=== PATIENT | female | born 1945 | race Caucasian/White ===

== ENCOUNTER 2020-01-31 07:53 | Emergency (ER) | payer MEDICARE, MEDICAID ==
--- NOTE | 2020-01-31 18:33 | CR ---
CLINICAL DATA: Pain. AP AND FROG-LEG PELVIS: Minimal osteoarthritic change of the hip joints. Mild degenerative changes involving the SI joints and symphysis pubis. No acute fracture or dislocation. No lytic or blastic bone lesions. Job: [id number] [facility]
--- NOTE | 2020-01-31 18:38 | CR ---
CLINICAL DATA: Pain. LUMBAR SPINE, 31 JANUARY 2020: No priors. There is diffuse osteopenia. The vertebral bodies are of average height. No acute fracture or dislocation. No lytic or blastic bone lesions. There is mild right convexity scoliosis of the upper lumbar spine. There are disk margin spurs throughout the lower thoracic and lumbar spine with disk space narrowing diffusely. There is mild anterolisthesis of L3 on L4 and of L4 on L5. There is facet joint hypertrophy throughout the lumbar spine. There is a 12 mm rim-calcified structure anterior to the L1 vertebra on the lateral view, which is probably vascular calcification. No other significant findings. [facility] [id number] [facility]
== END 2020-01-31 10:25 | disposition home or self-care (01) ==
LOC: LB.ED 07:53 → SUPCPDRO 07:53 → EDBD 07:53 → LB.ED 10:25
DX: M54.41 Lumbago with sciatica, right side (principal); I16.0 Hypertensive urgency
CPT/HCPCS: 72100; 72170; 99282; 99283

== ENCOUNTER 2021-08-15 09:30 | Inpatient (IN) | payer MEDICARE, MEDICAID ==
[2021-08-15 11:04] LABS: ESTIMATED GFR > 60 MLS/MIN (>60)
[2021-08-15] MEDS ORDERED: LORazepam 2 MG/ML SDV IM ONE (11:32)
[2021-08-15] MEDS ORDERED: Pantoprazole 40 MG Vial IVPUSH ONE (11:36)
[2021-08-15] MEDS ORDERED: LORazepam 2 MG/ML SDV ONE (11:37)
[2021-08-15] MEDS ORDERED: Pantoprazole 40 MG Vial ONE (12:20)
[2021-08-15] MEDS: Pantoprazole 80 MG in Sodium Chloride 0.9% 100 ML IV SCH (12:28)
[2021-08-15] MEDS ORDERED: Acetaminophen 325 MG Tab PO PRN (12:52)
[2021-08-15] MEDS: Sucralfate 1 GM Tab PO SCH (21:59)
[2021-08-16] MEDS: Pantoprazole 80 MG in Sodium Chloride 0.9% 100 ML IV SCH (01:40)
[2021-08-16] MEDS ORDERED: Sucralfate 1 GM Tab ONE (10:22)
[2021-08-16] MEDS: LORazepam 2 MG/ML SDV IVPUSH PRN ×2 (10:28→16:39)
[2021-08-16] MEDS: Sucralfate 1 GM Tab PO SCH ×3 (10:29→20:31)
[2021-08-17] MEDS: LORazepam 2 MG/ML SDV IVPUSH PRN ×3 (00:29→15:45)
[2021-08-17] MEDS: Sucralfate 1 GM Tab PO SCH ×3 (08:22→19:52)
[2021-08-17] MEDS: Pantoprazole 80 MG in Sodium Chloride 0.9% 100 ML IV SCH (08:38)
[2021-08-18] MEDS: LORazepam 2 MG/ML SDV IVPUSH PRN ×3 (00:32→16:50)
[2021-08-18] MEDS ORDERED: Pantoprazole 40 MG Vial IVPUSH ONE (06:27)
[2021-08-18] MEDS ORDERED: fentaNYL 100 MCG/2 ML SDV IVPUSH ONE (06:38)
[2021-08-18] MEDS ORDERED: LORazepam 2 MG/ML SDV ONE (06:45)
[2021-08-18] MEDS ORDERED: fentaNYL 100 MCG/2 ML SDV ONE (06:46)
[2021-08-18] MEDS: Pantoprazole 80 MG in Sodium Chloride 0.9% 100 ML IV SCH (08:45)
[2021-08-18] MEDS ORDERED: Octreotide 100 MCG/ML SDV IVPUSH SCH ×2 (09:15)
[2021-08-18] MEDS: Sucralfate 1 GM Tab PO SCH ×3 (10:34→19:23)
[2021-08-18] MEDS: hydrOXYzine HCl 25 MG Tab PO PRN (12:25)
[2021-08-18] MEDS ORDERED: Pantoprazole 40 MG Vial ONE (22:31)
[2021-08-19] MEDS: hydrOXYzine HCl 25 MG Tab PO PRN ×2 (07:10→19:59)
[2021-08-19] MEDS: Sucralfate 1 GM Tab PO SCH ×3 (07:10→19:59)
[2021-08-19] MEDS ORDERED: SODIUM CHLORIDE 0.9% IV SCH ×2 (08:00→10:30)
[2021-08-19] MEDS ORDERED: OCTREOTIDE IV SCH ×2 (08:00→10:30)
[2021-08-19] MEDS: LORazepam 2 MG/ML SDV IVPUSH PRN ×2 (11:00→17:06)
[2021-08-19] MEDS: Pantoprazole 80 MG in Sodium Chloride 0.9% 100 ML IV SCH ×2 (11:25→21:31)
[2021-08-20] MEDS: hydrOXYzine HCl 25 MG Tab PO PRN (06:29)
[2021-08-20] MEDS: Sucralfate 1 GM Tab PO SCH (08:07)
[2021-08-20] MEDS: Pantoprazole 80 MG in Sodium Chloride 0.9% 100 ML IV SCH (08:08)
[2021-08-20] MEDS ORDERED: Ondansetron 4 MG/2 ML SDV IVPUSH PRN (11:29)
[2021-08-21] MEDS ORDERED: Omeprazole 20 MG Cap.CR PO SCH (08:00)
== END 2021-08-20 12:09 | disposition swing bed (61) | DRG 378 ==
LOC: LB.ED 09:30 → LB.MS 15:00
PROVIDERS: ADMIT Physician Assistant; ATTEND Nurse Practitioner Family
PROC: 30233N1 Transfusion of Nonautologous Red Blood Cells into Peripheral Vein, Percutaneous Approach (ICD-10-PCS; principal; 2021-08-15)
PROC: 30233N1 Transfusion of Nonautologous Red Blood Cells into Peripheral Vein, Percutaneous Approach (ICD-10-PCS; 2021-08-15)
DX: K92.2 Gastrointestinal hemorrhage, unspecified (principal); D62 Acute posthemorrhagic anemia; G89.29 Other chronic pain; M54.9 Dorsalgia, unspecified; F41.9 Anxiety disorder, unspecified; R13.10 Dysphagia, unspecified; T39.015A Adverse effect of aspirin, initial encounter; Z51.5 Encounter for palliative care
CPT/HCPCS: 36415; 36430; 71250; 74176; 80053; 83605; 83690; 85025; 85379; 86850; 86900; 86901; 86920; 86922; 96372; 96374; 99285; A0425; A0429; C9113 ×2; J2060; J3490; P9016; 92526-GN; 92610-GN; 97161-GP; A9270-GY; J2354-JA

== ENCOUNTER 2021-08-20 11:48 | Inpatient (IN) | payer MEDICARE, MEDICAID ==
[2021-08-20] MEDS ORDERED: Acetaminophen 325 MG Tab PO PRN (12:09)
[2021-08-20] MEDS ORDERED: Ondansetron 4 MG/2 ML SDV IVPUSH PRN (12:09)
[2021-08-20] MEDS ORDERED: hydrOXYzine HCl 25 MG Tab PO PRN (12:09)
[2021-08-20] MEDS: LORazepam 2 MG/ML SDV IVPUSH PRN (14:27)
[2021-08-20] MEDS: Sucralfate 1 GM Tab PO SCH ×2 (14:34→20:54)
[2021-08-21] MEDS: Sucralfate 1 GM Tab PO SCH ×3 (07:03→20:49)
[2021-08-21] MEDS: Omeprazole 20 MG Cap.CR PO SCH (07:03)
[2021-08-21] MEDS ORDERED: Pantoprazole 80 MG in Sodium Chloride 0.9% 100 ML IV SCH (11:00)
[2021-08-21] MEDS ORDERED: Sodium Chloride 0.9% 1,000 ML IV SCH (11:10)
[2021-08-21] MEDS: OCTREOTIDE IV SCH (11:13)
[2021-08-21] MEDS: SODIUM CHLORIDE 0.9% IV SCH (11:13)
[2021-08-21] MEDS: LORazepam 2 MG/ML SDV IVPUSH PRN (12:16)
[2021-08-21] MEDS ORDERED: LORazepam 2 MG/ML SDV IVPUSH ONE (16:09)
[2021-08-21] MEDS: Sodium Chloride 0.9% 1,000 ML IV SCH (17:30)
[2021-08-21] MEDS: Pantoprazole 80 MG in Sodium Chloride 0.9% 100 ML IV SCH (17:37)
[2021-08-22] MEDS: Pantoprazole 80 MG in Sodium Chloride 0.9% 100 ML IV SCH (04:15)
[2021-08-22] MEDS: Sodium Chloride 0.9% 1,000 ML IV SCH (06:59)
[2021-08-22] MEDS: SODIUM CHLORIDE 0.9% IV SCH (07:17)
[2021-08-22] MEDS: OCTREOTIDE IV SCH (07:17)
[2021-08-22] MEDS: Omeprazole 20 MG Cap.CR PO SCH (07:37)
[2021-08-22] MEDS: LORazepam 2 MG/ML SDV IVPUSH PRN ×2 (07:38→13:30)
[2021-08-22] MEDS: Sucralfate 1 GM Tab PO SCH ×2 (07:38→13:48)
[2021-08-23] MEDS ORDERED: Ketorolac 60 MG/2 ML SDV IVPUSH PRN (06:05)
[2021-08-23] MEDS ORDERED: Ketorolac 30 MG/ML SDV ONE (06:08)
[2021-08-23] MEDS: LORazepam 2 MG/ML SDV IVPUSH PRN ×2 (08:39→17:56)
== END 2021-08-21 10:00 | disposition expired | DRG 948 ==
LOC: UNDOADMIN 12:09 → LB.MS 12:09 → UNDODISIN 08-21 10:00
PROVIDERS: ADMIT Nurse Practitioner Family; ATTEND Nurse Practitioner Family
DX: R53.1 Weakness (principal); K92.2 Gastrointestinal hemorrhage, unspecified; D62 Acute posthemorrhagic anemia; G89.29 Other chronic pain; M79.18 Myalgia, other site; F41.9 Anxiety disorder, unspecified
CPT/HCPCS: 36415; 36430; 82947; 85025; 86850; 86900; 86901; 86920; 86922; A9270-GY; C9113; J1885; J2060; J2405; J3490; J7030; P9016